=== PATIENT | female | born 1955 | race Caucasian/White ===

== ENCOUNTER 2023-04-03 08:00 | Outpatient (OUT) | payer MEDICARE, SELFPAY ==
[2023-04-03 08:28] LABS: Estimated Average Glucose 111 mg/dL; Glycohemoglobin A1C 5.5 % (4.5-6.2)
[2023-04-03 10:38] LABS: Basophils Absolute Auto 0.1 10^3/uL (0.0-0.1); Basophils Percent Auto 1.4 % (0.2-2.0); Eosinophils Absolute Auto 0.2 10^3/uL (0.0-0.7); Eosinophils Percent Auto 3.9 % (0.9-7.0); Hematocrit 44.8 % (36.0-48.0); Hemoglobin 14.6 g/dL (12.0-16.0); Immature Granulocytes Abs Auto 0.02 10^3/uL (0.00-0.03); Immature Granulocytes Pct Auto 0.4 % (0.0-0.5); Lymphocytes Absolute Auto 1.7 10^3/uL (1.2-3.8); Lymphocytes Percent Auto 33.7 % (20.5-60.0); Mean Corpuscular HGB Conc 32.6 g/dL (29.9-35.2); Mean Corpuscular Hemoglobin 29.8 pg (26.7-34.0); Mean Corpuscular Volume 91.4 fL (81.0-99.0); Mean Platelet Volume 9.6 fL (9.5-13.5); Monocytes Absolute Auto 0.4 10^3/uL (0.3-0.8); Monocytes Percent Auto 7.5 % (1.7-12.0); Neutrophils Absolute Auto 2.7 10^3/uL (1.4-6.5); Neutrophils Percent Auto 53.1 % (43.0-75.0); Platelet Count 218 10^3/uL (150-450); Red Cell Distribution Width 12.9 % (11.0-15.0); White Blood Count 5.1 10^3/uL (4.0-11.0)
[2023-04-03 10:52] LABS: Alanine Aminotransferase 20 U/L (14-59); Albumin Globulin Ratio 1.2; Alkaline Phosphatase 80 U/L (46-116); Anion Gap 9.6; Aspartate Amino Transferase 20 U/L (15-37); BUN Creatinine Ratio 16.4; Bilirubin Total 0.7 mg/dL (0.2-1.0); Calcium 9.8 mg/dL (8.5-10.1); Carbon Dioxide 29.7 mmol/L (21.0-32.0); Chloride 105 mmol/L (98-107); Chol HDL Ratio 2.1; Cholesterol 167 mg/dL (<=200); Estimated GFR (African America >60 (>=60); Estimated GFR (Non-African Ame >60 (>=60); Free T3 2.48 pg/mL (2.18-3.98); Globulin 3.4 g/dL; Glucose 95 mg/dL (74-106); HDL Cholesterol 79 mg/dL (40-60); Potassium 4.3 mmol/L (3.5-5.1); Sodium 140 mmol/L (136-145); Thyroid Stimulating Hormone 1.196 uIU/mL (0.358-3.740); Total Protein 7.4 g/dL (6.4-8.2); Triglycerides 64 mg/dL (<=150); VLDL CHOLESTEROL 12.8 mg/dL
[2023-04-03 11:00] LABS: Free T4 1.21 ng/dL (0.76-1.46)
== END 2023-04-03 08:01 | disposition home or self-care (01) ==
LOC: LAB 08:01
PROVIDERS: PCP Family Medicine; Visit Provider Family Medicine
DX: Z00.00 Encounter for general adult medical examination without abnormal findings (principal); R53.83 Other fatigue; E78.5 Hyperlipidemia, unspecified; Z51.81 Encounter for therapeutic drug level monitoring; R73.09 Other abnormal glucose
CPT/HCPCS: 36415; 80053; 80061; 83036; 84439; 84443; 84481; 85025

== ENCOUNTER 2023-11-11 07:49 | Outpatient (OUT) | payer MEDICARE, SELFPAY ==
--- NOTE | 2023-11-11 07:52 | MM_ITS ---
Patient Name: TORI BORDEN MR#: [id number] : 1955 Exam Date: 11/11/2023 Ordering Doctor: DR JUNE GARNICA RADIOLOGY REPORT PROCEDURE: MM TOMOSYNTHESIS SCREENING BI COMPARISON: MG MAMM SCREEN 3D AICHA CAD, 11/01/2021. MG MAMM SCREEN 3D AICHA CAD, 11/05/2022. INDICATIONS: Screening Calculator Name NCI Breast Cancer Risk Assessment Tool 5 Year Breast Cancer Risk 1.70% Lifetime Breast Cancer Risk 5.10% Personal Breast Cancer No Personal Ovarian Cancer No Treatments None Family Cancers Grandfather-maternal with colon cancer at age ~60. LOCATION: [facility] BREAST COMPOSITION: Heterogeneously dense,which may obscure small masses. FINDINGS: DIAGNOSTIC CATEGORY 1--NEGATIVE. NO CHANGE FROM COMPARISON ASSESSMENT. RIGHT BREAST: No significant suspicious finding. LEFT BREAST: No significant suspicious finding. RECOMMENDATIONS: ROUTINE MAMMOGRAM AND CLINICAL EVALUATION IN 12 MONTHS. PLEASE NOTE: A NORMAL MAMMOGRAM DOES NOT EXCLUDE THE POSSIBILITY OF BREAST CANCER. A CLINICALLY SUSPICIOUS PALPABLE LUMP SHOULD BE BIOPSIED. Dictated by: René Ramirez MD on 11/11/2023 at 10:25 Approved by: René Ramirez MD on 11/11/2023 at 10:28
== END 2023-11-11 07:50 | disposition home or self-care (01) ==
LOC: MAMMO 07:49
PROVIDERS: PCP Family Medicine; Visit Provider Obstetrics & Gynecology
DX: Z12.31 Encounter for screening mammogram for malignant neoplasm of breast (principal); Z80.0 Family history of malignant neoplasm of digestive organs
CPT/HCPCS: 77063; 77067

== ENCOUNTER 2024-05-04 06:37 | Outpatient (OUT) | payer MEDICARE, SELFPAY ==
[2024-05-04 07:23] LABS: Basophils Absolute Auto 0.1 10^3/uL (0.0-0.1); Eosinophils Absolute Auto 0.3 10^3/uL (0.0-0.7); Eosinophils Percent Auto 5.7 % (0.9-7.0); Hematocrit 43.1 % (36.0-48.0); Hemoglobin 14.3 g/dL (12.0-16.0); Immature Granulocytes Abs Auto 0.01 10^3/uL (0.00-0.03); Immature Granulocytes Pct Auto 0.2 % (0.0-0.5); Lymphocytes Percent Auto 44.6 % (20.5-60.0); Mean Corpuscular HGB Conc 33.2 g/dL (29.9-35.2); Mean Corpuscular Hemoglobin 30.4 pg (26.7-34.0); Mean Corpuscular Volume 91.5 fL (81.0-99.0); Mean Platelet Volume 9.4 fL (9.5-13.5); Monocytes Absolute Auto 0.4 10^3/uL (0.3-0.8); Monocytes Percent Auto 8.4 % (1.7-12.0); Neutrophils Absolute Auto 1.8 10^3/uL (1.4-6.5); Neutrophils Percent Auto 39.1 % (43.0-75.0); Platelet Count 217 10^3/uL (150-450); Red Blood Count 4.71 10^6/uL (4.20-5.40); White Blood Count 4.5 10^3/uL (4.0-11.0)
[2024-05-04 07:45] LABS: Alanine Aminotransferase 23 U/L (14-59); Albumin Globulin Ratio 1.3; Albumin Level 3.8 g/dL (3.4-5.0); Alkaline Phosphatase 76 U/L (46-116); Anion Gap 11.3; Aspartate Amino Transferase 24 U/L (15-37); BUN Creatinine Ratio 13.3; Bilirubin Total 0.9 mg/dL (0.2-1.0); Calcium 9.7 mg/dL (8.5-10.1); Carbon Dioxide 28.9 mmol/L (21.0-32.0); Chloride 104 mmol/L (98-107); Chol HDL Ratio 1.8; Cholesterol 158 mg/dL (<=200); Estimated GFR (African America >60 (>=60 mL/min/1.73m^2); Estimated GFR (Non-African Ame >60 (>=60 mL/min/1.73m^2); Glucose 95 mg/dL (74-106); HDL Cholesterol 86 mg/dL (40-60); Potassium 4.2 mmol/L (3.5-5.1); Sodium 140 mmol/L (136-145); Thyroid Stimulating Hormone 2.539 uIU/mL (0.358-3.740); Total Protein 6.8 g/dL (6.4-8.2); Triglycerides 62 mg/dL (<=150); VLDL CHOLESTEROL 12.4 mg/dL
[2024-05-04 07:55] LABS: Estimated Average Glucose 103 mg/dL; Glycohemoglobin A1C 5.2 % (4.5-6.2)
[2024-05-05 08:12] LABS: Insulin 6.1 uIU/mL (2.6-24.9)
== END 2024-05-04 06:38 | disposition home or self-care (01) ==
LOC: LAB 06:37
PROVIDERS: PCP Family Medicine; Visit Provider Nurse Practitioner Family
DX: E03.9 Hypothyroidism, unspecified (principal); E78.5 Hyperlipidemia, unspecified; R73.09 Other abnormal glucose
CPT/HCPCS: 36415; 80053; 80061; 83036; 83525; 84436; 84443; 84481; 85025

== ENCOUNTER 2024-11-18 08:00 | Outpatient (OUT) | payer MEDICARE, SELFPAY ==
--- NOTE | 2024-11-18 08:02 | MM_ITS ---
Patient Name: TORI BORDEN MR#: [id number] : 1955 Exam Date: 11/18/2024 Ordering Doctor: DR JUNE GARNICA RADIOLOGY REPORT PROCEDURE: MM TOMOSYNTHESIS SCREENING BI COMPARISON: MM TOMOSYNTHESIS SCREENING BI, 11/11/2023. MG MAMM SCREEN 3D AICHA CAD, 11/05/2022. MG MAMM SCREEN 3D AICHA CAD, 11/01/2021. MG MAMM AICHA SCRN W CAD DIG, 06/09/2013. INDICATIONS: Screening Calculator Name NCI Breast Cancer Risk Assessment Tool 5 Year Breast Cancer Risk 1.80% Lifetime Breast Cancer Risk 4.90% Personal Breast Cancer No Personal Ovarian Cancer No Treatments None Family Cancers Grandfather-maternal with colon cancer at age ~60. LOCATION: [facility] BREAST COMPOSITION: The breasts are heterogeneously dense,which may obscure small masses. FINDINGS: RIGHT BREAST: No significant suspicious finding. LEFT BREAST: No significant suspicious finding. DIAGNOSTIC CATEGORY 1--NEGATIVE. RECOMMENDATIONS: ROUTINE MAMMOGRAM AND CLINICAL EVALUATION IN 12 MONTHS. PLEASE NOTE: A NORMAL MAMMOGRAM DOES NOT EXCLUDE THE POSSIBILITY OF BREAST CANCER. A CLINICALLY SUSPICIOUS PALPABLE LUMP SHOULD BE BIOPSIED. Dictated by: Doron Quezada DO on 11/18/2024 at 08:41 Approved by: Doron Quezada DO on 11/18/2024 at 08:52
== END 2024-11-18 08:01 | disposition home or self-care (01) ==
LOC: MAMMO 08:00
PROVIDERS: PCP Family Medicine; Visit Provider Obstetrics & Gynecology
DX: Z12.31 Encounter for screening mammogram for malignant neoplasm of breast (principal); Z80.0 Family history of malignant neoplasm of digestive organs
CPT/HCPCS: 77063; 77067

== ENCOUNTER 2025-05-07 08:29 | Outpatient (OUT) | payer MEDICARE, SELFPAY ==
--- OUTSIDE RECORDS SUMMARY | 2025-05-07 08:31 | XMS_ITS | CCD ---
Author Organization [facility] Care Team Providers Care Business Intelligence Developer Name Role Phone MADDISON JUÁREZ Deanna Unavailable Unavailable ZELALEM NIELSON Unavailable Unavailab Teresa Cruz Primary Care Physician Clint ARELLANO Attending Unavailable Teresa Sandy Referring Unavailable Clint ARELLANO Attending Unavailable NILL ., DR DIALLO Admitting Unavailable NILL ., DR DIALLO Attending Unavailable HOY ., DR MOORE Primary Care Unavailable NILL ., DR DIALLO Consulting Unavailable VEDA OVERTON Consulting Unavailable DANIKA, DR WATKINS Admitting Unavailable DANIKA, DR WATKINS Attending Unavailable MORENA ., DR MOORE Primary Care Unavailable Barrett Rivera Consulting Unavailable DR JUNE GARNICA Consulting Unavailable HOArnaldo ., DR MOORE Admitting Unavailable HOY ., DR MOORE Attending Unavailable HOY ., DR MOORE Primary Care Unavailable KAITLINY ., DR MOORE Consulting Unavailable Unavailable Primary Care Provider UnavailJUNE Vela Attending Unavailable Allergies Allergy Classification Reported Allergen(s) Allergy Type Date of Onset Reaction(s) Facility (4 sources) Codeine; Translations: [codeine] Drug Allergy 8 Nausea and vomiting (disorder), GI intolerance, Nausea And Vomiting, Other [facility] [place] (4 sources) Erythromycin; Translations: [erythromycin] Drug Allergy 8 Diarrhea (finding), Diarrhea, GI intolerance General Surgery [place] (1 source) Codeine Drug Allergy 0 [facility] (3 sources) Erythromycin Drug Allergy 0 Unknown [facility] Medications Current Medications Medication Drug Class(es) Dates Sig (Normalized) Sig (Original) ascorbic acid 500 mg oral capsule (2 sources) Vitamin C Ascorbic Acid (Vitamin C) 500 MG capsule Orally Active calcium carbonate 1500 mg oral tablet (1 source) Start: 12-30-2019 take 1 tablet by mouth once daily calcium (as carbonate) 600 mg oral tablet 600 mg = 1 tab(s), Oral, Daily, Refills(s) 0 Start Date: 12/30/19 Status: Ordered doxycycline hyclate 20 mg oral tablet (3 sources) Tetracycline-clas s Drug Start: 10-05-2024 take 1 tablet by mouth twice daily as needed doxycycline (Periostat) 20 MG tablet Take 20 mg by mouth 2 (two) times a day as needed 10/05/2024 Active Start: 01-15-2020 take 1 tablet by melly th every twelve hours doxycycline 20 mg Tab 20 mg = 1 tab(s), Oral, q12hr, Refills(s) 0 Start Date: 01/15/20 Status: Ordered gabapentin 300 mg oral capsule (3 sources) Anti-epileptic Agent Start: 09-13-2022 gabapenti n 300 mg Cap as directed, Refills(s) 0 Start Date: 09/13/22 Status: Ordered melatonin 5 mg oral tablet (3 sources) Start: 12-30-2019 take 1 tablet by mouth once daily at bedtime as needed melatonin 5 mg oral tablet 5 mg = 1 tab(s), Oral, Once a day (at bedtime), PRN for insomnia Start Date: 12/30/19 Status: Ordered Multi Vitamins oral tablet (1 source) Start: 09-13-2022 take 1 tablet by mouth once daily Multi Vitamins oral tablet 1 tab(s), Oral, Daily, Refill(s) 0 Start Date: 09/13/22 Status: Ordered Multiple Vitamin (MULTIVITAMINS PO) (2 sources) Multiple Vitamin (MULTIVITAMINS PO) Orally Active Vitamin D3 2000 intl units oral Tab (1 source) Start: 09-13-2022 take 1 tablet by mouth once daily Vitamin D3 2000 intl units oral Tab = 1 tab(s), Oral, Daily, tab(s), Refills(s) 0 Start Date: 09/13/22 Status: Ordered zinc gluconate 50 mg oral tablet (2 sources) zinc gluconate 50 MG tablet 1 (one) time each day at the same time Active Completed/Discontinued Medications Medication Drug Class(es) Dates Sig (Normalized) Sig (Original) levothyroxine sodium 0.05 mg oral tablet (3 sources) l-Thyroxine Start: 12-30-2019 take 1 tablet by mouth once daily Synthroid 50 mcg Tab 50 microgram = 1 tab(s), Oral, Daily, Refills(s) 0 Start Date: 12/30/19 Status: Ordered take 1 tablet by melly once daily in the morning levothyroxine (Synthroid, Levoxyl) 50 MC G tablet TAKE 1 TABLET BY MOUTH EVERY DAY IN THE MORNING ON EMPTY STOMACH FOR 90 DAYS Active Problems Active Problems Problem Classification Problem Date Documented Date Episodic/Chronic Deficiency and other anemia (1 source) Anemia 12-30-2019 Episodic Disorders of lipid metabolism (4 sources) Hyperlipidemia; Translations: [Hyperlipidemia, unspecified] Onset: 10-17-2022 09-13-2022 Chronic Esophageal disorders (4 sources) Gastroesophageal reflux disease; Translations: [Gastro-esophageal reflux disease without esophagitis] Onset: 10-17-2022 12-30-2019 Chronic Menopausal disorders (1 source) Atrophy of vagina; Translations: [Postmenopausal atrophic vaginitis] 11-03-2024 Chronic Other bone disease and musculoskeletal deformities (1 source) Other specified disorders of bone density and structure, unspecified site; Translations: [OTH D/O BONE DEN STRUCT UNS SITE] Onset: 11-11-2022 Episodic Other inflammatory condition of skin (1 source) Rosacea 01-15-2020 Chronic Other non-traumatic joint disorders (1 source) Mass of knee 09-13-2022 Episodic Other nutritional; endocrine; and metabolic disorders (1 source) Body mass index less than 20 09-25-2022 Episodic Other screening for suspected conditions (not mental disorders or infectious disease) (12 sources) Screening for malignant neoplasm of colon done; Translations: [Encounter for screening for malignant neoplasm of colon] Onset: 09-25-2022 Episodic Other upper respiratory disease (1 source) 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 Residual codes; unclassified (1 source) Family history of malignant neoplasm of digestive organs; Translations: [FAM HX MALIG NEOPLASM DIGESTIV ORGN] Onset: 11-11-2022 Episodic Residual codes; unclassified (1 source) Asymptomatic menopausal state; Translations: [ASYMPTOMATIC MENOPAUSAL STATE] Onset: 11-11-2022 Episodic Thyroid disorders (8 sources) Hypothyroidism; Translations: [Hypothyroidism, unspecified] Onset: 03-29-2022 12-30-2019 Chronic Unclassified (1 source) Unknown / UNK(Unknown) Onset: 09-27-2017 Unclassified (1 source) Patient encounter status 09-25-2022 Viral infection (1 source) Postherpetic neuralgia 09-13-2022 Episodic Past or Other Problems Problem Classification Problem Date Documented Da te Episodic/Chronic Deficiency and other anemia (1 source) Anemia, unspecified; Translations: [ANEMIA UNSPECIFIED] Onset: 03-30-2022 Episodic Diabetes mellitus without complication (1 source) Other abnormal glucose; Translations: [OTHER ABNORMAL GLUCOSE] Onset: 03-30-2022 Episodic Other upper respiratory disease (1 source) Other diseases of vocal cords; Translations: [OTHER DISEASES OF VOCAL CORDS] Onset: 03-30-2022 Episodic Results Test Name Value Interpretation Reference Range Facility MM TOMOSYNTHESIS SCREENING B Ion 11-18-2024 [place] [address] Mammography Report Signed Patient: SHELBIE BORDEN MR#: [id number] : 1955 Acct:[id number] Age/Sex: 69 / F ADM Date: 11/18/24 Loc: MAMMO Attending Dr: JUNE GARNICA Ordering Physician: JUNE GARNICA Results: Date of Service: 11/18/24 Follow Up: Procedure(s): MM tomosynthesis screening BI Accession Number(s): [id number] cc: JUNE GARNICA ; Teresa Sandy M.D. Patient Name: SHELBIE BORDEN MR#: [id number] : 1955 Exam Date: 11/18/2024 Ordering Doctor: DR JUNE GARNICA RADIOLOGY REPORT PROCEDURE: MM TOMOSYNTHESIS SCREENING BI COMPARISON: MM TOMOSYNTHESIS SCREENING BI, 11/11/2023. MG MAMM SCREEN 3D AICHA CAD, 11/05/2022. MG MAMM SCREEN 3D AICHA CAD, 11/01/2021. MG MAMM AICHA SCRN W CAD DIG, 06/09/2013. INDICATIONS: Screening Calculator Name NCI Breast Cancer Risk Assessment Tool 5 Year Breast Cancer Risk 1.80% Lifetime Breast Cancer Risk 4.90% Personal Breast Cancer No Personal Ovarian Cancer No Treatments None Family Cancers Grandfather-maternal with colon cancer at age 60. LOCATION: [facility] BREAST COMPOSITION: The breasts are heterogeneously dense,which may obscure small masses. FINDINGS: RIGHT BREAST: No significant suspicious finding. LEFT BREAST: No significant suspicious finding. DIAGNOSTIC CATEGORY 1--NEGATIVE. RECOMMENDATIONS: ROUTINE MAMMOGRAM AND CLINICAL EVALUATION IN 12 MONTHS. PLEASE NOTE: A NORMAL MAMMOGRAM DOES NOT EXCLUDE THE POSSIBILITY OF BREAST CANCER. A CLINICALLY SUSPICIOUS PALPABLE LUMP SHOULD BE BIOPSIED. Dictated by: Doron Quezada DO on 11/18/2024 at 08:41 Approved by: Doron Quezada DO on 11/18/2024 at 08:52 Dictated By: Doron Quezada D.O. Signed By: 11/18/24 0854 DD/ 0852 TD/TT: Management Professor: [facility] Radiology, Radiolograjesh posada MD - 11/18/2024 [place] [address] Mammography Report Signed Patient: SHELBIE BORDEN MR#: [id number] : 1955 Acct:[id number] Age/Sex: 69 / F ADM Date: 11/18/24 Loc: MAMMO Attending Dr: JUNE GARNICA Ordering Physician: JUNE GARNICA Results: Date of Service: 11/18/24 Follow Up: Procedure(s): MM tomosynthesis screening BI Accession Number(s): [id number] cc: JUNE GARNICA ; Teresa Sandy M.D. Patient Name: SEHLBIE BORDEN MR#: [id number] : 1955 Exam Date: 11/18/2024 Ordering Doctor: DR JUNE GARNICA RADIOLOGY REPORT PROCEDURE: MM TOMOSYNTHESIS SCREENING BI COMPARISON: MM TOMOSYNTHESIS SCREENING BI, 11/11/2023. MG MAMM SCREEN 3D AICHA CAD, 11/05/2022. MG MAMM SCREEN 3D AICHA CAD, 11/01/2021. MG MAMM AICHA SCRN W CAD DIG, 06/09/2013. INDICATIONS: Screening Calculator Name NCI Breast Cancer Risk Assessment Tool 5 Year Breast Cancer Risk 1.80% Lifetime Breast Cancer Risk 4.90% Personal Breast Cancer No Personal Ovarian Cancer No Treatments None Family Cancers Grandfather-maternal with colon cancer at age 60. LOCATION: [facility] BREAST COMPOSITION: The breasts are heterogeneously dense,which may obscure small masses. FINDINGS: RIGHT BREAST: No significant suspicious finding. LEFT BREAST: No significant suspicious finding. DIAGNOSTIC CATEGORY 1--NEGATIVE. RECOMMENDATIONS: ROUTINE MAMMOGRAM AND CLINICAL EVALUATION IN 12 MONTHS. PLEASE NOTE: A NORMAL MAMMOGRAM DOES NOT EXCLUDE THE POSSIBILITY OF BREAST CANCER. A CLINICALLY SUSPICIOUS PALPABLE LUMP SHOULD BE BIOPSIED. Dictated by: Doron Quezada DO on 11/18/2024 at 08:41 Approved by: Doron Quezada DO on 11/18/2024 at 08:52 Dictated By: Doron Quezada D.O. Signed By: 11/18/24 0854 DD/ 0852 TD/TT: Management Professor: [facility] Radiology Study observation (narrative) [facility] MM TOMOSYNTHESIS SCREENING B IOrdered By: Radiologist Radiology on 11-18-2024 [facility] [employer] Work Phone: MG MAMM SCREEN 3D AICHA CADon 11-05-2022 MG MAMM SCREEN 3D AICHA CAD Patient: SHELBIE BORDEN Exam Date: 11/05/2022 : 1955 Gender:F Ordering : DR JUNE GARNICA Admission #: [id number] Family : Order #: [id number] CLICK HERE TO VIEW EXAM RADIOLOGY REPORT PROCEDURE: MAMMOGRAM SCREENING 3D BILATERAL CAD COMPARISON: MG MAMM SCREEN 3D AICHA CAD, 11/01/2021. MG MAMM SCREEN AICHA W CAD, 08/12/2020. MG MAMM SCREEN AICHA W CAD, 07/01/2019. DIGITIZED_MAMMO, 04/05/2009. INDICATIONS: Screening mammography Calculator Name NCI Breast Cancer Risk Assessment Tool 5 Year Breast Cancer Risk 1.70% Lifetime Breast Cancer Risk 5.40% Personal Breast Cancer No Personal Ovarian Cancer No Treatments None Family Cancers Grandfather-maternal with colon cancer at age 60. LOCATION: [facility] BREAST COMPOSITION: Heterogeneously dense,which may obscure small masses. FINDINGS: DIAGNOSTIC CATEGORY 1--NEGATIVE. RIGHT BREAST: No significant suspicious finding. No significant change has occurred. LEFT BREAST: No significant suspicious finding. No significant change has occurred. RECOMMENDATIONS: ROUTINE MAMMOGRAM AND CLINICAL EVALUATION IN 12 MONTHS. PLEASE NOTE: A NORMAL MAMMOGRAM DOES NOT EXCLUDE THE POSSIBILITY OF BREAST CANCER. A CLINICALLY SUSPICIOUS PALPABLE LUMP SHOULD BE BIOPSIED. Dictated by: Barrett Rivera M.D. on 11/05/2022 at 11:51 Approved by: Barrett Rivera M.D. on 11/05/2022 at 11:53 Normal [facility] XR DEXA BONE DENSITYon 11-05 XR DEXA BONE DENSITY EXAMINATION: XR DEXA BONE DENSITY, 11/05/2022 8:26 AM EDT HISTORY: Screening for osteoporosis COMPARISON: DEXA bone densitometry 06/18/2016 TECHNIQUE: Dual-energy X-ray absorptiometry (DEXA) bone density study performed for the axial skeleton. FINDINGS: SPINE ANALYSIS: Average bone mineral density is 1.142 g/cm2. T-score (standard deviation relative to young adult mean): -0.3 . -4.8% change since prior study. HIP ANALYSIS: Lowest bone mineral density is within the right femoral neck, 0.790 g/cm2. T-score (standard deviation relative to young adult mean): -1.8 . -9.7% change since prior study. IMPRESSION: World Isaiah Organization Classification: Osteopenia - Moderate Fracture Risk Electronically authenticated by: BARRETT RIVERA Date: 2022-11-05 15:07 Normal [facility] Outside Colonoscopyon 2022 Outside Colonoscopy [id number]:1 27 Normal [facility] Reminderson 10-12-2022 Reminders - From: Sosa Bland LPN To: GSN - Clinical; Sent: 10/12/2022 12:04:26 EDT Show up: 09/12/2032 07:00:00 EST Subject: colonoscopy recall Due Date/Time: 10/10/2032 07:00:00 EDT Reminder/Recall Patient is due for screening colonoscopy 10/10/2032. Normal [facility] Facesheeton 09-27-2022 Facesheet [id number]: 127 Normal [facility] Consent for Procedure/Surger yon 09-26-2022 Consent for Procedure/Surgery [id number]: 127 Normal [facility] Ambulatory Visit Summaryon 0 09-25-2022 Ambulatory Visit Summary SHELBIE BORDEN :1955 Visit Date:09/25/2022 Ambulatory Visit Instructions Your Diagnosis Screening for malignant neoplasm of colon Your Care Team Attending Physician - EILEEN LUNDBERG, Clint Rader Primary Care Physician - Teresa Sandy MD Referring Physician - Teresa Sandy MD This Is Your Medications List Contact prescribing physician if questions or concerns calcium carbonate (calcium (as carbonate) 600 mg oral tablet) cholecalciferol (Vitamin D3 2000 intl units oral Tab) doxycycline (doxycycline 20 mg Tab) gabapentin (gabapentin 300 mg Cap) levothyroxine (Synthroid 50 mcg Tab) melatonin (melatonin 5 mg oral tablet) multivitamin (Multi Vitamins oral tablet) Procedures Performed Dilatation and curettage, Tonsillectomy with adenoidectomy. Discharge Vitals Heart Rate (Peripheral) 72 Respiratory Rate 16 Blood Pressure 128/98 Height 161 cm Height 63 in Weight 49 kg Weight 107.8 lb BMI 18.9 Medications What How Much When Instructions Unchanged calcium carbonate (calcium (as carbonate) 600 mg oral tablet) 1 Tablets By Mouth Every day Contact prescribing physician if questions or concerns Unchanged cholecalciferol (Vitamin D3 2000 intl units oral Tab) 1 Tablets By Mouth Every day Contact prescribing physician if questions or concerns Unchanged doxycycline (doxycycline 20 mg Tab) 1 Tablets By Mouth Every 12 hours Contact prescribing physician if questions or concerns Unchanged gabapentin (gabapentin 300 mg Cap) as directed Contact prescribing physician if questions or concerns Unchanged levothyroxine (Synthroid 50 mcg Tab) 1 Tablets By Mouth Every day Contact prescribing physician if questions or concerns Unchanged melatonin (melatonin 5 mg oral tablet) 1 Tablets By Mouth Once a day (at bedtime) as needed for for insomnia Contact prescribing physician if questions or concerns Unchanged multivitamin (Multi Vitamins oral tablet) 1 Tablets By Mouth Every day Contact prescribing physician if questions or concerns Medications and Immunizations Administered Not Given influenza virus vaccine, inactivated, Patient Refuses SARS-CoV-2 mRNA (tozinameran 5y-11y) vac, Patient Refuses Allergies codeine (Nausea and vomiting) erythromycin (Diarrhea) Problems Ongoing - Any problem that you are currently receiving treatment for. Abductor spastic dysphonia Anemia BMI less than 19,adult Chronic GERD Hyperlipidemia Hypothyroidism Postherpetic neuralgia Rosacea Screening for malignant neoplasm of colon Historical - Any problem that you are no longer receiving treatment for. Mass of right knee Normal [facility] Physician Referralon 022 Physician Referral [id number]: 127 Normal [facility] T4, T3U, FTI LABCORPon 03-30 Free Thyroxine Index 3.9 Normal 1.2-4.9 [facility] Comment on above: Performed By: #### T HYLC #### [facility] [address] [place] [address] Dr. Arlen Dimas T3 Uptake 39 % Normal 24-39 [facility] Comment on above: Performed By: #### T HYLC #### [facility] [address] [place] [address] Dr. Arlen Dimas T4 [Mass/Vol] 10.1 ug/dL Normal 4.5-12.0 [facility] Comment on above: Performed By: #### T HYLC #### [facility] [address] [place] [address] Dr. Arlen Dimas CBC AUTO DIFFon 03-29-2022 BASO # 0.1 103/ul Normal 0.0-0.1 [facility] Comment on above: Performed By: #### C BC #### [facility] [address] [place] [address] Dr. Arlen Dimas Basophils/100 WBC (Bld) 1.5 % Normal 0.2-2.0 [facility] Comment on above: Performed By: #### C BC #### [facility] [address] [place] [address] Dr. Arlen Dimas EO # 0.2 103/ul Normal 0.0-0.7 [facility] Comment on above: Performed By: #### C BC #### [facility] [address] [place] [address] Dr. Arlen Dimas Eosinophils/100 WBC (Bld) 3.3 % Normal 0.9-7.0 [facility] Comment on above: Performed By: #### C BC #### [facility] [address] [place] [address] Dr. Arlen Dimas Erythrocyte distribution width (RBC) [Ratio] 13.0 % Normal 11.0-15.0 [facility] Comment on above: Performed By: #### C BC #### [facility] [address] [place] [address] Dr. Arlen Dimas Hematocrit (Bld) [Volume fraction] 42.9 % Normal 36.0-48.0 [facility] Comment on above: Performed By: #### C BC #### [facility] [address] [place] [address] Dr. Arlen Dimas Hemoglobin (Bld) [Mass/Vol] 14.5 g/dL Normal 12.0-16.0 [facility] Comment on above: Performed By: #### C BC #### [facility] [address] [place] [address] Dr. Arlen Dimas IG # 0.01 10e3/ul Normal 0.00-0.03 [facility] Comment on above: Performed By: #### C BC #### [facility] [address] [place] [address] Dr. Arlen Dimas IG % 0.2 % Normal 0.0-0.5 [facility] Comment on above: Performed By: #### C BC #### [facility] [address] [place] [address] Dr. Arlen Dimas LYMPH # 1.6 103/ul Normal 1.2-3.8 [facility] Comment on above: Performed By: #### C BC #### [facility] [address] [place] [address] Dr. Arlen Dimas Lymphocytes/100 WBC (Bld) 33.5 % Normal 20.5-60.0 [facility] Comment on above: Performed By: #### C BC #### [facility] [address] [place] [address] Dr. Arlen Dimas MANUAL DIFF REQ NO Normal [facility] Comment on above: Performed By: #### C BC #### [facility] [address] [address] [address] Arlen Dimas MCH (RBC) [Entitic mass] 30.7 pg Normal 26.7-34.0 [facility] Comment on above: Performed By: #### C BC #### [facility] [address] [place] [address] Dr. Arlen Dimas MCHC (RBC) [Mass/Vol] 33.8 g/dL Normal 29.9-35.2 [facility] Comment on above: Performed By: #### C BC #### [facility] [address] [place] [address] Dr. Arlen Dimas MCV (RBC) [Entitic vol] 90.7 fL Normal 81.0-99.0 [facility] Comment on above: Performed By: #### C BC #### [facility] [address] [place] [address] Dr. Arlen Dimas MONO # 0.3 103/ul Normal 0.3-0.8 [facility] Comment on above: Performed By: #### C BC #### [facility] [address] [place] [address] Dr. Arlen Dimas Monocytes/100 WBC (Bld) 6.9 % Normal 1.7-12.0 [facility] Comment on above: Performed By: #### C BC #### [facility] [address] [place] [address] Dr. Arlen Dimas NEUT # 2.6 103/ul Normal 1.4-6.5 [facility] Comment on above: Performed By: #### C BC #### [facility] [address] [place] [address] Dr. Arlen Dimas Neutrophils/100 WBC (Bld) 54.6 % Normal 43.0-75.0 [facility] Comment on above: Performed By: #### C BC #### [facility] [address] [place] [address] Dr. Arlen Dimas Platelet mean volume (Bld) [Entitic vol] 9.2 fL Critically low 9.5-13.5 [facility] Comment on above: Performed By: #### C BC #### [facility] [address] [address] [address] Arlen Dimas PLT 201 103/ul Normal 150-450 [facility] Comment on above: Performed By: #### C BC #### [facility] [address] [address] [address] Arlen Dimas RBC 4.73 106/ul Normal 4.20-5.40 [facility] Comment on above: Performed By: #### C BC #### [facility] [address] [address] [address] Arlen Dimas WBC 4.8 103/ul Normal 4.0-11.0 [facility] Comment on above: Performed By: #### C BC #### [facility] [address] [place] [address] Dr. Arlen Dimas GLYCOHEMOGLOBIN A1Con 2021 ADA RECOMMENDATION SEE BELOW Normal [facility] Comment on above: Result Comment: ADA RECOMMENDED LIMIT 4.0 - 6.0 ADA THERAPEUTIC TARGET < 7.0 ACTION SUGGESTED > 7.0 Performed By: #### A 1C #### [facility] [address] [address] [address] Arlen Dimas Glucose [Mass/Vol] 114 mg/dL Normal [facility] Comment on above: Performed By: #### A 1C #### [facility] [address] [address] [address] Arlen Dimas HbA1c (Bld) [Mass fraction] 5.6 % Normal 4.5-6.2 [facility] Comment on above: Performed By: #### A 1C #### [facility] [address] [address] [address] Arlen Dimas IRONon 03-29-2022 Iron [Mass/Vol] 114.0 ug/dL Normal 50.0-170.0 [facility] Comment on above: Performed By: #### I CHIQUI #### [facility] [address] [place] [address] Dr. Arlen Dimas LIPID PROFILEon 03-29-2022 CHOL-HDL RATIO NORM SEE BELOW Normal [facility] Comment on above: Result Comment: 3.3 - 4.4 LOW RISK 4.4 - 7.1 AVERAGE RISK 7.1 - 11.0 MODERATE RISK >11.0 HIGH RISK Performed By: #### T SH, CMP, LIPID #### [facility] [address] [address] [address] Arlen Dimas Cholesterol [Mass/Vol] 163 mg/dL Normal <=200 [facility] Comment on above: Performed By: #### T SH, CMP, LIPID #### [facility] [address] [address] [address] Arlen Dimas Cholesterol in HDL [Mass/Vol] 70 mg/dL Critically high 40-60 [facility] Comment on above: Performed By: #### T SH, CMP, LIPID #### [facility] [address] [address] [address] Arlen Dimas Cholesterol in LDL [Mass/Vol] 79.6 mg/dL Normal [facility] Comment on above: Performed By: #### T SH, CMP, LIPID #### [facility] [address] [address] [address] Arlen Dimas Cholesterol.total/C holesterol in HDL [Mass ratio] 2.3 {ratio} Normal [facility] Comment on above: Performed By: #### T SH, CMP, LIPID #### [facility] [address] [address] [address] Arlen Dimas HDL NORMAL > or = 60 mg/dl - LO W CARDIOVASCULAR RISK <40 mg/dl - HIGH CARDIOVASCULAR RISK Normal [facility] Comment on above: Performed By: #### T SH, CMP, LIPID #### [facility] [address] [address] [address] Arlen Dimas LDL CALC NORMAL SEE BELOW Normal [facility] Comment on above: Result Comment: <100 mg/dl OPTIMAL 100 - 129 mg/dl NEAR OR ABOVE OPTIMAL 130 - 159 mg/dl BORDERLINE HIGH 160 - 189 mg/dl HIGH >190 mg/dl VERY HIGH Performed By: #### T SH, CMP, LIPID #### [facility] [address] [address] [address] Arlen Dimas Triglyceride [Mass/Vol] 67 mg/dL Normal <=150 [facility] Comment on above: Performed By: #### T SH, CMP, LIPID #### [facility] [address] [place] [address] Dr. Arlen Dimas VLDL CALC 13.4 mg/dL Normal [facility] Comment on above: Performed By: #### T SH, CMP, LIPID #### [facility] [address] [place] [address] Dr. Arlen Dimas PROF 14(COMP METB)on 022 Albumin [Mass/Vol] 4.0 g/dL Normal 3.4-5.0 [facility] Comment on above: Performed By: #### T TABITHA CMP, LIPID #### [facility] [address] [place] [address] Dr. Arlen Dimas Albumin/Globulin [Mass ratio] 1.3 {ratio} Normal [facility] Comment on above: Performed By: #### T SH, CMP, LIPID #### [facility] [address] [place] [address] Dr. Arlen Dimas ALP [Catalytic activity/Vol] 76 U/L Normal 46-116 [facility] Comment on above: Performed By: #### T SH, CMP, LIPID #### [facility] [address] [place] [address] Dr. Arlen Dimas ALT [Catalytic activity/Vol] 18 U/L Normal 14-59 [facility] Comment on above: Performed By: #### T SH, CMP, LIPID #### [facility] [address] [place] [address] Dr. Arlen Dimas Anion gap [Moles/Vol] 11.0 mmol/L Normal [facility] Comment on above: Performed By: #### T SH, CMP, LIPID #### [facility] [address] [place] [address] Dr. Arlen Dimas AST [Catalytic activity/Vol] 18 U/L Normal 15-37 [facility] Comment on above: Performed By: #### T SH, CMP, LIPID #### [facility] [address] [address] [address] Arlen Dimas Bilirubin [Mass/Vol] 0.7 mg/dL Normal 0.2-1.0 [facility] Comment on above: Performed By: #### T SH, CMP, LIPID #### [facility] [address] [place] [address] Dr. Arlen Dimas Calcium [Mass/Vol] 9.7 mg/dL Normal 8.5-10.1 [facility] Comment on above: Performed By: #### T SH, CMP, LIPID #### [facility] [address] [place] [address] Dr. Arlen Dimas Chloride [Moles/Vol] 105 mmol/L Normal 98-107 [facility] Comment on above: Performed By: #### T SH, CMP, LIPID #### [facility] [address] [place] [address] Dr. Arlen Dimas CO2 [Moles/Vol] 30.3 mmol/L Normal 21.0-32.0 [facility] Comment on above: Performed By: #### T SH, CMP, LIPID #### [facility] [address] [place] [address] Dr. Arlen Dimas Creatinine [Mass/Vol] 0.63 mg/dL Normal 0.55-1.02 [facility] Comment on above: Performed By: #### T SH, CMP, LIPID #### [facility] [address] [place] [address] Dr. Arlen Dimas EGFR-AF BRITISH >60 Normal >=[address] [facility] Comment on above: Performed By: #### T SH, CMP, LIPID #### [facility] [address] [place] [address] Dr. Arlen Dimas EGFR-NON AF BRITISH >60 Normal >=60 [facility] Comment on above: Performed By: #### T SH, CMP, LIPID #### [facility] [address] [place] [address] Dr. Arlen Dimas Globulin (S) [Mass/Vol] 3.2 g/dL Normal [facility] Comment on above: Performed By: #### T SH, CMP, LIPID #### [facility] [address] [address] [address] Arlen Dimas Glucose [Mass/Vol] 99 mg/dL Normal 74-106 [facility] Comment on above: Performed By: #### T SH, CMP, LIPID #### [facility] [address] [address] [address] Arlen Dimas Potassium [Moles/Vol] 4.3 mmol/L Normal 3.5-5.1 [facility] Comment on above: Performed By: #### T SH, CMP, LIPID #### [facility] [address] [address] [address] Arlen Dimas Protein [Mass/Vol] 7.2 g/dL Normal 6.4-8.2 [facility] Comment on above: Performed By: #### T SH, CMP, LIPID #### [facility] [address] [address] [address] Arlen Dimas Sodium [Moles/Vol] 142 mmol/L Normal 136-145 [facility] Comment on above: Performed By: #### T SH, CMP, LIPID #### [facility] [address] [address] [address] Arlen Dimas Urea nitrogen [Mass/Vol] 11.0 mg/dL Normal 7.0-18.0 [facility] Comment on above: Performed By: #### T SH, CMP, LIPID #### [facility] [address] [address] [address] Arlen Dimas Urea nitrogen/Creatinine [Mass ratio] 17.5 mg/mg Normal [facility] Comment on above: Performed By: #### T SH, CMP, LIPID #### [facility] [address] [address] [address] Arlen Dimas TSHon 03-29-2022 TSH 1.087 uIU/mL Normal 0.358-3.740 [facility] Comment on above: Performed By: #### T SH, CMP, LIPID #### [facility] [address] [address] [address] Arlen Dimas PROGRESSon 09-27-2017 PROGRESS HNO ID: [id number]: Maddison JuárezService: (none)Author Type: PhysicianType: Progress NotesFiled: 09/27/2017 3:58 PMNote Text:(H35.373) Epiretinal membrane (ERM) of both eyes (primary encounterdiagnosis)(H35. 341) Lamellar macular hole of right eye(H25.13) Nuclear sclerotic cataract, [id number] year old female patient that presents for a retinal evaluation. Onexamination today, the patient demonstrates a mild Epiretinal membranewith lamellar hole in the right eye. The visionis 20/20. Adviseobservation alone.The left eye demonstrates a mild cellophane for which I recommendobservation as well.Mild cataracts are present. Advise observation.Return to clinic with Dr. Nielson in 3-4 months and as needed with retina.The documentation recorded by the scribe accurately reflects the service Ipersonally performed and the decisions made by me.I have confirmed and edited as necessary the relevant ophthalmic history,ROS, and the neuro exam findings as obtained by others. I have seen andexamined Shelbie Borden. I have discussed the case and the managementof this patient's care with the Military Education Coordinator, if applicable. I also havereviewed and agree with the assessment and plan as stated above and agreewith all of its relevant components.Maddison Juárez, [facility] 2017 3:56 PM Normal [facility] Vital Signs Date Time Vital Sign Value Performing Clinician Facility 11-03-2024 08:51-0400 Body height 159.4 cm June Garnica [employer] Work Phone: [facility] 11-03-2024 08:51-0400 Body mass index (BMI) [Ratio] 18.75 kg/m2 June Ganrica [employer] Work Phone: [facility] 11-03-2024 08:51-0400 Body weight 47.63 kg June Garnica [employer] Work Phone: [facility] 11-03-2024 08:51-0400 Diastolic blood pressure 78 mm[Hg] June Garnica [employer] Work Phone: [facility] 11-03-2024 08:51-0400 Systolic blood pressure 122 mm[Hg] June Garnica DO Work Phone: [facility] 09-25-2022 13:16-0500 Blood Pressure Location Clint NILL [facility] 09-25-2022 13:16-0500 Diastolic blood pressure 98 mm[Hg] Clint NILL [facility] 09-25-2022 13:16-0500 Heart rate 72 /min Clint NILL [facility] 09-25-2022 13:16-0500 Respiratory rate 16 /min Clint NILL [facility] 09-25-2022 13:16-0500 Systolic blood pressure 128 mm[Hg] Clint NILL [facility] Encounters Encounter Date Encounter Type Care Provider Facility Start: 11-18-2024 End: 11-18-2024 Clinisync Result Encounter June Garnica DO Work Phone: [facility] External Department Unsolicited Start: 11-18-2024 End: 11-18-2024 Clinisync Result Encounter June Garnica DO Work Phone: [facility] External Department Unsolicited Start: 11-03-2024 End: 11-03-2024 Patient encounter procedure June Garnica DO Work Phone: [facility] Comment on above: Encounter for gyneco logical examination without abnormal finding (Primary Dx); Encounter for Papanicolaou smear of cervix; Breast cancer screening by mammogram; Vaginal atrophy Start: 11-03-2024 End: 11-03-2024 Patient encounter status June Garnica DO Work Phone: [facility] Start: 11-03-2024 End: 11-03-2024 ambulatory JUNE GARNICA Not Available Start: 11-05-2022 End: 11-06-[address] JUNE GARNICA Facility:[facility] Start: 10-10-2022 End: 10-11-2022 ambulatory Clint ARELLANO Facility:CD:[id number] Start: 09-25-2022 End: 09-26-2022 ambulatory Clint ARELLANO Facility:[facility] Start: 09-25-2022 End: 09-25-2022 Patient encounter procedure Clint ARELLANO [facility] Start: 03-29-2022 End: 03-30-[address] TERESA SANDY . Facility: Start: 09-27-2017 End: 10-03-2017 Ambulatory MADDISON Deanna PATY [facility] Procedures Date Procedure Procedure Detail Performing Clinician Start: 11-18-2024 MM TOMOSYNTHESIS SCR EESARAH Garnica DO Work Phone: Dilation and curetta ge of uterus Clint ARELLANO Tonsillectomy and adenoidectomy Clint ARELLANO Plan of Treatment Date Care Activity Detail Author Start: 11-08-2026 End: 11-08-2026 Patient encounter procedure 11/08/2026 9:00 AM EDT Office Visit [facility] [address] [place] [id number] June Garnica, DO [address] [place] [address] [facility] Start: 11-11-2024 End: 01-03-2026 DBT Breast - bilateral screening Bilateral screening mammogram with tomosynthesis Imaging Routine Breast cancer screening by mammogram Expected: 11/11/2024, Expires: 01/03/2026 [facility] Comment on above: Expected: 11/11/2024 , Expires: 01/03/2026 IGP,rfxAptima HPV all,16/18,45 IGP,rfxAptima HPV all,16/18,45 Pathology and Cytology Routine Encounter for Papanicolaou smear of cervix Ordered: 11/03/2024 [facility] Work Phone: Comment on above: Ordered: 11/03/2024 Immunizations Immunization Date Immunization Notes Care Provider Fa cili 2020 influenza, high dose seasonal, preservative-free June Garnica DO Work Phone: [facility] 05-05-2018 influenza, seasonal, injectable, preservative free June Garnica DO Work Phone: [facility] 05-21-2016 seasonal influenza, intradermal, preservative free June Garnica DO Work Phone: [facility] NEGATED: Highlighted row has not occurred!09-25-2022 influenza virus vaccine, unspecified formulation Clint ARELLANO [facility] NEGATED: Highlighted row has not occurred!09-25-2022 SARS-CoV-2 mRNA (tozinameran 5y-11y) vaccine Clint ARELLANO [facility] Payers Date Payer Category Payer Medicaid [employer] MED[employer]ARE A DVANTAGE [id number] 5 2024 Private Health Insurance [employer] [facility] [id number] 2018 Medicare MEDICARE [id number] 5 1959 Medicare [id number] 1959 Unknown [id number] 1953 Unknown [id number] 1953 Unknown [id number] 1953 Unknown [id number] 1953 Unknown [id number] 1953 Unknown [id number] 1953 Unknown [id number] Social History Date Type Detail Facility Start: 09-25-2022 End: 11-03-2024 Tobacco smoking status Never smoked tobacco (finding) [facility] Tobacco smoking status Never [facility] Start: 11-03-2024 Sex Assigned At Female F [facility] Start: 11-03-2024 Tobacco use and exposure Smokeless tobacco non-user [facility] Start: 11-03-2024 Alcoholic beverage intake Ex-drinker (finding) [facility] Start: 11-03-2024 History of Social function [facility] How often to you hav e a drink containing alcohol? Never [facility] Start: 1955 Sex assigned at Not on file [facility] Functional Status Date Assessment Result Facility 09-25-2022 Functional Status N/A [facility] History of Present illness Narrative 11-03-2024 Chhayastephan Cavazos MA - 11/03/2024 9:00 AM EDT Note Date & Type Note Facility 11-03-2024 History of Presen t illness Narrative Images from the original note were not included. June Garnica, DO Obstetrics and Gynecology Shelbie Borden 1955 11/03/24 [id number] Yearly Wellness Exam Chief Complaint Patient presents with Gynecologic Exam Medicare yearly. LMP: 2008 HRT: None Last pap 10-30-22 neg. Last mammogram 11-11-23 [facility]. Denies breast, urinary, or bowel concerns. Visit Vitals BP 122/78 Ht 5' 2.75 Wt 105 lb BMI 18.75 kg/m OB Status Postmenopausal Smoking Status Never BSA 1.45 m OB History Para Term AB Living 2 2 2 SAB IAB Ectopic Multiple Live Births 2 # Outcome Date GA Lbr Gualberto/2nd Weight Sex Type Anes PTL Lv 2 Para 1981 9 lb 4 oz M Vag-Spont AMARJIT 1 Para 1980 7 lb 14 oz F Vag-Spont AMARJIT Current Outpatient Medications Medication Sig Dispense Refill doxycycline (Periostat) 20 MG tablet Take 20 mg by mouth 2 (two) times a day as needed Ascorbic Acid (Vitamin C) 500 MG capsule Orally gabapentin (Neurontin) 300 MG capsule Take 300 mg by mouth Daily levothyroxine (Synthroid, Levoxyl) 50 MCG tablet TAKE 1 TABLET BY MOUTH EVERY DAY IN THE MORNING ON EMPTY STOMACH FOR 90 DAYS melatonin 5 MG tablet 1 (one) time each day at the same time Multiple Vitamin (MULTIVITAMINS PO) Orally zinc gluconate 50 MG tablet 1 (one) time each day at the same time No current facility-administered medications for this visit. Allergies Allergen Reactions Codeine GI intolerance, Nausea And Vomiting and Other Erythromycin Diarrhea and GI intolerance Erythromycin Base Unknown Past Surgical History: Procedure Laterality Date COLONOSCOPY 09/2022 neg HYSTEROSCOPY 2001 +D&C, Ablation THROAT SURGERY 2002 fibroptic TONSILLECTOMY + adenoids VAGINAL DELIVERY x2 Past Medical History: Diagnosis Date Acute recurrent frontal sinusitis Anemia GERD (gastroesophageal reflux disease) Hypothyroidism (CMS/HCC) Mastoiditis Post herpetic neuralgia (CMS/HCC) Spasmodic dysphonia Thyroid disease (CMS/HCC) ROS Const: Denies appetite change, fever, chills. Allergy: Denies medication reaction. Ocular: Denies visual acuity change. ENT: Denies hearing change. Endoc: Denies weight loss. Resp: Denies dyspnoea, wheezing. Cardiac: Denies angina, palpitations. GI: Denies nausea, vomiting. Haem: Denies bleeding. : Denies incontinence. MSK: Denies arthralgias, joint oedema. Derm: Denies rash, hair loss. Neuro: Denies ataxia, tremor. Also see HPI for elements of ROS documented therein and for details of positive findings, which shall supersede the foregoing. EXAM GENERAL EXAMINATION alert oriented well developed, well nourished. HEAD: normocephalic atraumatic. EYES: sclera anicteric. EARS: no obvious hearing deficit. NECK/THYROID: neck supple no cervical lymphadenopathy no thyromegaly. LYMPH NODES: no axillary, supraclavicular or inguinal adenopathy. SKIN: warm and dry. HEART: regular rate and rhythm. LUNGS: clear to auscultation bilaterally. CHEST:axillary nodes grossly normal. BREASTS:no masses palpable bilaterally, normal nipples bilaterally - everted -fatty replaced - dense - well supported- axilla negative. ABDOMEN: soft, nontender, nondistended, no masses palpable. BACK: no costovertebral angle tenderness, no obvious scoliosis/kyphosis. FEMALE GENITOURINARY:yarder puncher in room - atrophic vaginal mucosa - multip cervix absent of lesions - non tender uterus AF atrophic mobile - ovaries non palpable and non tender - cul-de-sac negative and adnexa negative . RECTAL:normal tone , no masses palpable , only small external hemorrhoids. EXTREMITIES no edema. NEUROLOGIC: alert and oriented. PSYCH: cooperative with exam. ICD-10-CM 1. Encounter for gynecological examination without abnormal finding Z01.419 Pelvic and breast exam completed. Findings of today's exam discussed with the patient. Continue MSBE. Ca/Vit D recommendations reviewed with the patient. The patient is to contact the office with any changes to her gynecological condition or any changes with breast or bleeding. The patient is to return in 1 year or as needed 2. Encounter for Papanicolaou smear of cervix Z12.4 IGP,rfxAptima HPV all,16/18,45 Thinprep collected. Will notify patient if results are abnormal. 3. Breast cancer screening by mammogram Z12.31 Bilateral screening mammogram with tomosynthesis Screening mammogram ordered. Patient to call and schedule. 4. Vaginal atrophy N95.2 Entered by Chhaya Cavazos MA acting as scribe for Dr. June Garnica. Signature Chhaya Cavazos MA Date 11/03/24 . Time 8:57 AM . The documentation recorded by the scribe accurately reflects the service(s) I personally performed and the decisions I made. Signature Scott Garnica D.O. Date 11/03/24 Time 5:00PM. documented in this encounter [facility] Clinical Note 10-10-2022 Note Date & Type Note Facility 10-10-2022 Note OPERATIVE NOTE OPERATION DATE: 10/10/2022 PREOPERATIVE DIAGNOSIS: Colorectal screening. POSTOPERATIVE DIAGNOSIS: Normal colonoscopy to cecum. PROCEDURE: Colonoscopy to cecum. SURGEON: Clint Arellano M.D. ANESTHESIA: Monitored anesthesia care. ESTIMATED BLOOD LOSS: Zero. INDICATIONS AND CONSENT: Patient is a 67-year-old female presents for colorectal screening. Indications, risks, benefits, alternatives of proceeding with colonoscopy were explained extensively to the patient, including the risks of bleeding, colon perforation or anesthetic complications. All of her questions were answered. Informed consent was obtained. PROCEDURE: Patient brought to the operating room, placed in the left lateral decubitus position. Monitored anesthesia care was provided. Rectal exam was performed which showed no masses or blood. The scope was inserted into the anal canal. Under direct visualization was advanced. With the aid of abdominal compression, it was advanced to the cecum where cecal markings were clearly identified. Upon withdrawal of the scope, mucosal surfaces were carefully examined. There were no mass lesions or polyps. No inflammatory changes or ulcerations. No significant diverticulosis. The scope was retroflexed in the anal canal. There was no significant hemorrhoidal disease. Scope was then withdrawn. Patient tolerated procedure well, was sent to recovery room in good condition. Follow up colonoscopy should be in 10 years. CC: Teresa Sandy M.D. [facility] Clinical Note 09-25-2022 Note Date & Type Note Facility 09-25-2022 Note Chief Complaint consultation for screening colonoscopy HPI Staff 67 year old female presents on consultation from Dr. Sandy for screening colonoscopy. Denies abdominal or rectal pain. No rectal bleeding or change in bowel habits. Denies nausea or vomiting. No unexplained weight loss. Never had colonoscopy in the past. Maternal grandfather with history of colon cancer, diagnosed late 60's/early 70's and paternal uncle diagnosed age 60's. History of Present Illness 67 yo female with h/o hyperlipidemia, hypothyroidism, GERD, abductor spastic dysphonia, referred for colorectal screening; denies change in bms or blood in stools; no abd complaints; no previous abd operations or endoscopies; no asa or NSAID use; no SBE prophylaxis; fmhx of colon cancer in maternal grandfather and paternal Uncle, both dx in their 60's; no fmhx of IBD; no tobacco use. Review of Systems PHQ Score Initial Depression Screen Score: 0 Physical Exam Vitals & Measurements HR: 72(Peripheral) RR: 16 BP: 128/98 HT: 63 in HT: 161 cm WT: 49 kg WT: 107.8 lb BMI: 18.9 HEENT: normal conjunctiva, sclera clear, no scleral icterus, EOM intact, PERRLA, oral mucosa moist without lesions. Neck: trachea midline, no mass, symmetric, no thyromegaly or nodules, no adenopathy Respiratory: lungs CTA, respirations non labored. Cardiovascular: regular rate and rhythm, no murmur, no pedal edema or varicosities. Gastrointestinal: soft, non distended, no tenderness, no masses, no palpable hernias, diastasis recti no, no hepatosplenomegaly; normal bs Lymphatic: no cervical adenopathy, no supraclavicular adenopathy Musculoskeletal: normal gait, digits and nails without infection, nodes, cyanosis, clubbing. Skin: no rashes, no lesions, no ulcers, no subcutaneous nodules, induration. Psychiatric/Neuro: oriented to time, place, person, judgement normal, affect appropriate for age, insight intact, no focal deficits. Tests: review of old records completed, Discussed surgical options, risks, and possible complications with patient. Assessment/Plan 1. Screening for malignant neoplasm of colon (Z12.11: Encounter for screening for malignant neoplasm of colon) plan colonoscopy under anesthesia, informed consent obtained. Follow-up No qualifying data available Problem List/Past Medical History Ongoing Abductor spastic dysphonia Anemia BMI less than 19,adult Chronic GERD Hyperlipidemia Hypothyroidism Postherpetic neuralgia Rosacea Screening for malignant neoplasm of colon Historical Mass of right knee Procedure/Surgical History Dilatation and curettage, Tonsillectomy with adenoidectomy. Medications calcium (as carbonate) 600 mg oral tablet, 600 mg= 1 tab(s), Oral, Daily doxycycline 20 mg Tab, 20 mg= 1 tab(s), Oral, q12hr gabapentin 300 mg Cap melatonin 5 mg oral tablet, 5 mg= 1 tab(s), Oral, Once a day (at bedtime), PRN Multi Vitamins oral tablet, 1 tab(s), Oral, Daily Synthroid 50 mcg Tab, 50 mcg= 1 tab(s), Oral, Daily Vitamin D3 2000 intl units oral Tab, 1 tab(s), Oral, Daily Allergies codeine (Nausea and vomiting) erythromycin (Diarrhea) Social History Alcohol - Denies Alcohol Use, 01/15/2020 Substance Abuse - Denies Substance Abuse, 01/15/2020 Tobacco Never (less than 100 in lifetime) Tobacco Use:. Never Smokeless Tobacco Use:., 09/25/2022 Family History Diabetes mellitus type 2: Father. Heart disease: Father. Hypertension: Mother, Father and Sister. Immunizations Vaccine Date Status Comments influenza virus vaccine, inactivated - Not Given Patient Refuses SARS-CoV-2 mRNA (jeanne 5y-11y) vac - Not Given Patient Refuses [facility] Comment on above: Result Comment: Elec tronically Signed By: EILEEN LUNDBERG, Clint Rader\ismael\Date and Time Signed: 09/25/22 14:09 EST Evaluation + Plan note Note Date & Type Note Facility Evaluation + Plan note No data available for this section [facility] Evaluation note Note Date & Type Note Facility Evaluation note Diagnosis Encounter for gynecological examination without abnormal finding- Primary Encounter for Papanicolaou smear of cervix Breast cancer screening by mammogram Vaginal atrophy Postmenopausal atrophic vaginitis documented in this encounter [facility] Discharge instructions Note Date & Type Note Facility Hospital Discharge instructions No data available for this section General Surgery [facility] Progress note Note Date & Type Note Facility Progress note No data available for this section [facility] Summary Purpose Family History No Family History Records FoundNo Family History Records FoundNo Family History Records FoundNo Family History Records Found Advance Directives No Advanced Directives Records FoundNo Advanced Directives Records FoundNo Advanced Directives Records FoundNo Advanced Directives Records Found Additional Source Comments INFORMATION SOURCE (unrecogn ized section and content) DATE CREATED AUTHOR 01/17/2018 [facility] DATE CREATED AUTHOR AUTHOR'S ORGANIZ ATION 10/17/2022 [facility] DATE CREATED AUTHOR AUTHOR'S ORGANIZ ATION 11/11/2022 [facility] DATE CREATED AUTHOR AUTHOR'S ORGANIZ ATION 11/04/2024 [facility] EPIC Patient Care team informatio n (unrecognized section and content) Personnel Name: Teresa Sandy MD Address: Address: [address] [place] [address] Reason for Visit (unrecogniz ed section and content) Reason Comments Gynecologic Exam Medicare yearly.LMP: 2009HRT: NoneLast pap 10-30-22 neg.Last mammogram 11-10- [facility]. Denies breast, urinary, or bowel concerns. FOR RECORDS PERTAINING TO PATIENTS WHO ARE OR HAVE BEEN ENROLLED IN A CHEMICAL DEPENDENCY/SUBSTANCEABUSE PROGRAM, SOME INFORMATION MAY BE OMITTED. This clinical summary was aggregated from multiple sources. Caution should be exercised in using it in the provision of clinical care. This summary normalizes information from multiple sources, and as a consequence, information in this document may materially change the coding, format and clinical context of patient data. In addition, data may be omitted in some cases. CLINICAL DECISIONS SHOULD BE BASED ON THE PRIMARY CLINICAL RECORDS. [employer] provides no warranty or guarantee of the accuracy or completeness of information in this document.
[2025-05-07 08:55] LABS: Hematocrit 44.8 % (36.0-48.0); Hemoglobin 15.2 g/dL (12.0-16.0); Immature Granulocytes Abs Auto 0.01 10^3/uL (0.00-0.03); Immature Granulocytes Pct Auto 0.2 % (0.0-0.5); Lymphocytes Absolute Auto 1.3 10^3/uL (1.2-3.8); Mean Corpuscular HGB Conc 33.9 g/dL (29.9-35.2); Mean Corpuscular Hemoglobin 30.6 pg (26.7-34.0); Mean Corpuscular Volume 90.1 fL (81.0-99.0); Platelet Count 218 10^3/uL (150-450); Red Blood Count 4.97 10^6/uL (4.20-5.40); White Blood Count 4.1 10^3/uL (4.0-11.0)
[2025-05-07 09:46] LABS: Iron 107.0 ug/dL (50.0-170.0)
[2025-05-07 16:05] LABS: Alanine Aminotransferase 34 U/L (14-59); Albumin Globulin Ratio 1.2; Albumin Level 4.3 g/dL (3.4-5.0); Alkaline Phosphatase 92 U/L (46-116); Anion Gap 15.1; Aspartate Amino Transferase 28 U/L (15-37); Blood Urea Nitrogen 12.0 mg/dL (7.0-18.0); Calcium 9.9 mg/dL (8.5-10.1); Carbon Dioxide 25.1 mmol/L (21.0-32.0); Chloride 105 mmol/L (98-107); Cholesterol 159 mg/dL (<=200); Estimated GFR (African America >60 (>=60 mL/min/1.73m^2); Estimated GFR (Non-African Ame >60 (>=60 mL/min/1.73m^2); Free T3 2.01 pg/mL (2.18-3.98); Globulin 3.6 g/dL; Glucose 97 mg/dL (74-106); HDL Cholesterol 90 mg/dL (40-60); Potassium 4.2 mmol/L (3.5-5.1); Sodium 141 mmol/L (136-145); Thyroid Stimulating Hormone 1.208 uIU/mL (0.358-3.740); Total Protein 7.9 g/dL (6.4-8.2); Triglycerides 45 mg/dL (<=150); VLDL CHOLESTEROL 9.0 mg/dL
== END 2025-05-07 08:30 | disposition home or self-care (01) ==
LOC: LAB 08:29
PROVIDERS: PCP Family Medicine; Visit Provider Nurse Practitioner Family
DX: E03.9 Hypothyroidism, unspecified (principal); E55.9 Vitamin D deficiency, unspecified; D64.9 Anemia, unspecified; E11.9 Type 2 diabetes mellitus without complications
CPT/HCPCS: 36415; 80053; 80061; 82306; 83036; 83525; 83540; 84436; 84443; 84481; 85025